=== PATIENT | female | born 1950 | race Caucasian/White ===

== ENCOUNTER → 2016-07-28 | Outpatient (CLI) | payer MEDICARE ==
--- NOTE | 2016-07-28 15:54 | MAM ---
EXAM DESCRIPTION: MAMMO BREAST SCREENING BILATERAL CAD, images were reviewed with CAD technology, R2 computer-aided detection. CLINICAL HISTORY: [facility]. COMPARISON: 2013. FINDINGS: Routine views are obtained. Scattered glandular pattern with increased mammographic density. no dominant mass, architectural distortion or clustered microcalcification period. IMPRESSION: Benign exam. BIRAD CATEGORY: 2 BENIGN RECOMMENDATIONS: FOLLOW-UP: Routine screening mammogram in one year. According to the [employer], yearly mammograms are recommended starting at age 40 and continuing as long as a woman is in good health. Any breast change noted on a breast self-exam should be reported promptly to the patient's healthcare provider. Breast MRI is recommended for women with an approximately 20-25% or greater lifetime risk of breast cancer, including women with a strong family history of breast or ovarian cancer and women who have been treated for Hodgkin's disease. Electronically signed by: Virginia Meza 07/28/2016 15:52
== END | disposition home or self-care (01) ==
LOC: MAMMO 13:10
PROVIDERS: ATTEND Obstetrics & Gynecology
DX: Z12.31 Encounter for screening mammogram for malignant neoplasm of breast (principal)
CPT/HCPCS: 77067; G0202

== ENCOUNTER → 2017-07-29 | Outpatient (CLI) | payer MEDICARE ==
--- NOTE | 2017-08-03 15:15 | MAM ---
EXAM DESCRIPTION: 3D Screening BILATERAL : Digital Mammography. CLINICAL HISTORY: 67 years Female SCREENING . No complaints. Mother with breast cancer. Postmenopausal. Has taken HRT. COMPARISON: 2-D digital screening bilateral study 03/27/2017 and July 06, 2015. Report from prior examination also reviewed. TECHNIQUE: Bilateral CC and MLO projection full-field images, 3-D tomosynthesis digital mammographic technique. Also bilateral synthesized CC/ MLO full-field images. CAD not utilized. FINDINGS: The breast parenchymal density pattern is: Scattered areas of fibroglandular density. No skin thickening or nipple retraction bilateral vascular calcifications. Bilateral solitary microcalcifications. Bilateral lymph nodes in the axilla and axillary tail. Bilateral solitary microcalcifications. Skin mole anterior medial left breast. No focal, stellate mass or density, focal asymmetry , and no suspicious microcalcifications bilaterally. Stable mammograms compared to prior studies, taking into account differences in mammographic technique IMPRESSION: BI-RADS CATEGORY: 2 - BENIGN FINDINGS. FOLLOW UP: Routine digital bilateral screening, one year interval from July 2017. Written communication explaining the IMPRESSION and follow-up, will be mailed to the patient and referring health care provider. According to the [employer], yearly mammograms are recommended starting at age 40 and continuing as long as a woman is in good health. Any breast change noted on a breast self-exam should be reported promptly to the patient's healthcare provider. Breast MRI is recommended for women with an approximately 20-25% or greater lifetime risk of breast cancer, including women with a strong family history of breast or ovarian cancer and women who have been treated for Hodgkin's disease. A negative mammographic report should not delay tissue diagnosis in patients with significant clinical history or physical findings. Extremely dense breast tissue limits the sensitivity of digital mammography. Electronically signed by: Reese Brantley MD 08/03/2017 3:14 PM MILLING SUPERVISOR
== END ==
LOC: MAMMO 13:00
PROVIDERS: ATTEND Obstetrics & Gynecology
DX: Z12.31 Encounter for screening mammogram for malignant neoplasm of breast (principal)

== ENCOUNTER → 2018-03-05 | Outpatient (CLI) | payer MEDICARE | LOC: LAB.O 09:39 | DX: I10 Essential (primary) hypertension (principal); R53.83 Other fatigue; R35.8 Other polyuria; Z13.220 Encounter for screening for lipoid disorders ==

== ENCOUNTER → 2018-03-25 | Outpatient (CLI) | payer MEDICARE ==
--- NOTE | 2018-03-25 16:26 | RAD ---
EXAM DESCRIPTION: Knee,Left Complete CLINICAL HISTORY: 67 years Female, PAIN IN LEFT KNEE M25.562 TECHNIQUE: 4 views of the left knee were performed. COMPARISON: None available. FINDINGS: The visualized bones appear well mineralized. No acute fracture or dislocation. No evidence of suprapatellar joint effusion. The soft tissues appear grossly unremarkable. IMPRESSION: 1. Grossly unremarkable radiographs of the left knee. Electronically signed by: Tyler Leach MD 03/25/2018 4:25 PM CDT
--- NOTE | 2018-03-25 16:28 | RAD ---
EXAM DESCRIPTION: Pelvis CLINICAL HISTORY: 67 years Female, PAIN IN LEFT HIP M25.552 COMPARISON: None. TECHNIQUE: AP radiograph of the pelvis was performed. FINDINGS: The pelvic ring appears grossly intact on this single AP radiograph. No acute fracture or dislocation. Bilateral sacroiliac joints demonstrate mild degenerative changes. Bilateral hip joints demonstrate mild osteoarthritic changes. The visualized lumbo-sacral spine demonstrates mild degenerative changes. IMPRESSION: 1. Single AP radiograph of the pelvis demonstrates grossly intact pelvic ring. Both femoral heads well contained within the acetabular fossa. 2. Mild bilateral hip joint and SI joint degenerative changes. Electronically signed by: Tyler Leach MD 03/25/2018 4:27 PM CDT
== END ==
LOC: RAD 11:48
PROVIDERS: ATTEND Orthopaedic Surgery
DX: M25.562 Pain in left knee (principal); M25.552 Pain in left hip

== ENCOUNTER → 2018-08-01 | Outpatient (CLI) | payer MEDICARE ==
--- NOTE | 2018-08-01 16:44 | MAM ---
EXAM DESCRIPTION: 3D Screening BILATERAL : Digital Mammography. CLINICAL HISTORY: 68 years Female ANNUAL SCREENING no complaints. No personal history of breast cancer. Mother with breast cancer. Childbirth. Postmenopausal. HRT 5 or more years ago.. Lifetime risk of developing breast cancer (Tyrer-Cuzick model)(%): 8.4. COMPARISON: prior. No prior reports available. TECHNIQUE: Bilateral CC and MLO projection full-field images, digital tomosynthesis mammographic technique. Bilateral digital 2-D full-field MLO images. CAD not available for tomosynthesis or 2-D images. FINDINGS: The breast parenchymal density pattern is: Scattered areas of fibroglandular density. No skin thickening or nipple retraction. Solitary microcalcifications. Bilateral vascular calcifications. Right axillary lymph nodes. No new focal, stellate mass or density, focal asymmetry , and no suspicious microcalcifications bilaterally. Stable mammograms compared to prior study. IMPRESSION: Benign exam. BIRAD CATEGORY: 2 BENIGN FINDINGS. RECOMMENDATIONS: FOLLOW UP: Routine digital bilateral mammographic screening, one year interval from July 2018. Written communication explaining the IMPRESSION and follow-up, will be mailed to the patient and referring health care provider. According to the [employer], yearly mammograms are recommended starting at age 40 and continuing as long as a woman is in good health. Any breast change noted on a breast self-exam should be reported promptly to the patient's healthcare provider. Breast MRI is recommended for women with an approximately 20-25% or greater lifetime risk of breast cancer, including women with a strong family history of breast or ovarian cancer and women who have been treated for Hodgkin's disease. A negative mammographic report should not delay tissue diagnosis in patients with significant clinical history or physical findings. Extremely dense breast tissue limits the sensitivity of digital mammography. Electronically signed by: Reese Brantley MD 08/01/2018 4:41 PM UNDERGROUND ELECTRICIAN
== END ==
LOC: MAMMO 10:30
PROVIDERS: ATTEND Nurse Practitioner Family
DX: Z12.31 Encounter for screening mammogram for malignant neoplasm of breast (principal)

== ENCOUNTER → 2018-08-03 | Outpatient (CLI) | payer MEDICARE, OTHER ==
--- NOTE | 2018-08-03 16:43 | RAD ---
EXAM DESCRIPTION: Chest,2 Views CLINICAL HISTORY: SOB COMPARISON: None TECHNIQUE: PA/lateral FINDINGS: There is no acute appearing cardiac or pulmonary abnormality. Heart size is normal with normal pulmonary vascularity. No pleural effusion or pneumothorax. Lungs are clear with no consolidating infiltrate. Lateral view shows intact sternum and T-spine. Lungs appear hyperexpanded on lateral view. IMPRESSION: No acute process is identified in the chest. Electronically signed by: Ovidio Mckeon MD 08/03/2018 4:41 PM SHEEP BONER
== END ==
LOC: YCFC.O 15:43
PROVIDERS: ATTEND Nurse Practitioner Family
DX: R06.02 Shortness of breath (principal); R50.9 Fever, unspecified; R10.11 Right upper quadrant pain

== ENCOUNTER → 2019-08-07 | Outpatient (CLI) | payer MEDICARE, OTHER ==
--- NOTE | 2019-08-10 10:50 | MAM ---
EXAM DESCRIPTION: 3D Screening BILATERAL : Digital Mammography. CLINICAL HISTORY: 69 years Female ANNUAL SCREENING . No complaints. No personal history of breast cancer. Mother with breast cancer at age 69. Remote family history of breast cancer. Menarche age 14. Childbirth age 15. Menopause age 29. HRT 5 or more years ago. Lifetime risk of developing breast cancer (Tyrer-Cuzick model)(%): 3.2. COMPARISON: Bilateral screening digital breast tomosynthesis July 2018 and July 2017. TECHNIQUE: Bilateral CC and MLO projection full-field images, digital tomosynthesis mammographic technique. Bilateral digital 2-D full-field MLO images. CAD available for 2-D images. FINDINGS: The breast parenchymal density pattern is: Scattered areas of fibroglandular density. No skin thickening or nipple retraction. Vascular calcifications. Solitary microcalcifications. Lateral left intramammary lymph node. No new focal, stellate mass or density, focal asymmetry , and no suspicious microcalcifications bilaterally. Stable mammograms compared to prior study. IMPRESSION: Benign exam. BIRAD CATEGORY: 2 BENIGN FINDINGS. RECOMMENDATIONS: FOLLOW UP: Routine digital bilateral mammographic screening, one year interval from July 2019. Written communication explaining the IMPRESSION and follow-up, will be mailed to the patient and referring health care provider. According to the [employer], yearly mammograms are recommended starting at age 40 and continuing as long as a woman is in good health. Any breast change noted on a breast self-exam should be reported promptly to the patient's healthcare provider. Breast MRI is recommended for women with an approximately 20-25% or greater lifetime risk of breast cancer, including women with a strong family history of breast or ovarian cancer and women who have been treated for Hodgkin's disease. A negative mammographic report should not delay tissue diagnosis in patients with significant clinical history or physical findings. Extremely dense breast tissue limits the sensitivity of digital mammography. Electronically signed by: Reese Brantley MD 08/10/2019 10:49 AM SUPPLY CHAIN BUYER
== END ==
LOC: MAMMO 13:30
PROVIDERS: ATTEND Obstetrics & Gynecology
DX: Z12.31 Encounter for screening mammogram for malignant neoplasm of breast (principal)

== ENCOUNTER → 2019-08-31 | Outpatient (CLI) | payer MEDICARE, OTHER ==
--- NOTE | 2019-09-01 09:57 | RAD ---
EXAM DESCRIPTION: Foot,Left 3 Views CLINICAL HISTORY: 69 years Female, pain in left foot COMPARISON: None. FINDINGS: Three views of the left foot show no acute fracture or malalignment. Small calcaneal enthesophyte at the plantar fascia and Achilles tendon insertions. No radiopaque foreign body or soft tissue gas. IMPRESSION: Calcaneal spurring, otherwise unremarkable exam. Electronically signed by: Dallas Hunter MD 09/01/2019 9:56 AM CDT
== END ==
LOC: RAD 15:47
PROVIDERS: ATTEND Family Medicine
DX: Z00.00 Encounter for general adult medical examination without abnormal findings (principal); M77.32 Calcaneal spur, left foot; M79.672 Pain in left foot; R30.9 Painful micturition, unspecified

== ENCOUNTER → 2019-09-01 | Outpatient (CLI) | payer MEDICARE, OTHER | DX: Z00.00 Encounter for general adult medical examination without abnormal findings (principal); R35.8 Other polyuria; Z13.220 Encounter for screening for lipoid disorders; E78.2 Mixed hyperlipidemia; R73.01 Impaired fasting glucose ==

== ENCOUNTER → 2019-09-04 | Outpatient (CLI) | payer MEDICARE, OTHER | DX: R30.9 Painful micturition, unspecified (principal) ==

== ENCOUNTER → 2020-03-13 | Outpatient (CLI) | payer MEDICARE, OTHER ==
--- NOTE | 2020-03-14 15:37 | MRI ---
EXAM DESCRIPTION: Cervical Spine: MRI. CLINICAL HISTORY: 69 years Female CHRONIC PAIN SYNDROME SPINAL STENOSIS COMPARISON: MRI scan cervical spine without contrast February 2015. TECHNIQUE: Multiplanar, high-field MRI, multiple sequences, non-contrast Cervical spine. FINDINGS: C3-C4: Minimal disc desiccation. Minimal bulge of the disc into the left neural foramen but no significant narrowing. Tiny posterior midline bulge. Facet joints are negative. No canal or right neural foraminal narrowing. C4-C5: Disc desiccation with no bulging. Canal and bilateral neural foramina are patent. Facet joints are negative. C5-C6: Disc desiccation of the disc and moderate disc space loss. Minimal anterior bulging. Posterior broad-based bulge with broad-based anterior protrusion 4 mm with transverse dimension 1.6 cm approximating but not impressing on the ventral cord. AP canal diameter 10 mm. No significant change since the prior study. Chronic erosive process right posterior endplate involving the uncinate joint which is widening the right neuroforamen, versus prior uncinate ectomy. Stable since the prior study. Large left uncinate spur with moderate left neural foraminal narrowing slightly more narrow since the prior study. Bilateral facet joints are unremarkable. C6-C7: Disc desiccation and minimal disc space loss. Posterior broad-based bulge almost touching the cord with moderate canal narrowing. Small uncinate spurs bilaterally and mild bilateral neural foraminal narrowing. Facet joints are negative. Stable since the prior study. Normal signal in the C2-C3, C7-T1 disc, and T1-T2 disc disc with no bulging. Disc spaces preserved. Canal and neural foramina are patent. Minimal hypertrophy of the right C7-T1 facet joint. No interval change. Facet joints otherwise negative. Spinal alignment mild lordosis. No cord compression or cord edema. Atlantoaxial joint with mild hypertrophy. Base of the cerebellar tonsils is above the foramen magnum. Paravertebral soft tissues are negative. Vertebral bodies are not compressed at any level. Normal marrow signal in the remaining vertebral bodies and the posterior elements. IMPRESSION: 1. Multiple levels of desiccated discs. No new herniation. No new Canal stenoses. 2. Chronic posterior bulge with endplate spurs at C5-C6, and moderate canal narrowing but no stenosis; no interval change. Chronic erosive process at the right C5-C6 uncinate joint versus prior uncinate ectomy. Widening of the right neuroforamen. Stable since the prior study. Moderate left neural foraminal narrowing also stable. 3. Please refer to above FINDINGS for discussion of results at Individual disc space levels. Electronically signed by: Reese Brantley MD 03/14/2020 3:35 PM CDT
== END ==
LOC: MRI 12:28
PROVIDERS: ATTEND Anesthesiology Pain Medicine
DX: M50.31 Other cervical disc degeneration, high cervical region (principal); M50.321 Other cervical disc degeneration at C4-C5 level; M50.322 Other cervical disc degeneration at C5-C6 level; M50.323 Other cervical disc degeneration at C6-C7 level; M50.822 Other cervical disc disorders at C5-C6 level; M50.222 Other cervical disc displacement at C5-C6 level; M48.02 Spinal stenosis, cervical region; M25.78 Osteophyte, vertebrae; G89.4 Chronic pain syndrome

== ENCOUNTER → 2020-04-01 | Outpatient (CLI) | payer MEDICARE, OTHER | LOC: YCFC.O 16:03 | PROVIDERS: ATTEND Family Medicine | DX: R30.9 Painful micturition, unspecified (principal); R31.9 Hematuria, unspecified; R82.79 Other abnormal findings on microbiological examination of urine ==